=== PATIENT | male | born 1940 | race Caucasian/White ===

== ENCOUNTER 2022-12-13 13:11 | Outpatient (OUT) | payer MEDICARE, OTHER, SELFPAY ==
[2022-12-13 14:00] LABS: Basophils Percent Auto 0.4 % (0.2-2.0); Eosinophils Absolute Auto 0.1 10^3/uL (0.0-0.7); Eosinophils Percent Auto 2.1 % (0.9-7.0); Hematocrit 47.8 % (42.0-54.0); Hemoglobin 15.8 g/dL (14.0-18.0); Immature Granulocytes Abs Auto 0.03 10^3/uL (0.00-0.03); Immature Granulocytes Pct Auto 0.5 % (0.0-0.5); Lymphocytes Absolute Auto 1.2 10^3/uL (1.2-3.8); Lymphocytes Percent Auto 20.5 % (20.5-60.0); Mean Corpuscular HGB Conc 33.1 g/dL (29.9-35.2); Mean Corpuscular Hemoglobin 32.4 pg (25.9-34.0); Mean Corpuscular Volume 98.2 fL (80.0-94.0); Mean Platelet Volume 10.7 fL (9.5-13.5); Monocytes Absolute Auto 0.4 10^3/uL (0.3-0.8); Monocytes Percent Auto 7.4 % (1.7-12.0); Neutrophils Absolute Auto 3.9 10^3/uL (1.4-6.5); Neutrophils Percent Auto 69.1 % (43.0-75.0); Platelet Count 135 10^3/uL (150-450); Red Blood Count 4.87 10^6/uL (4.70-6.10); Red Cell Distribution Width 12.6 % (11.0-15.0); White Blood Count 5.7 10^3/uL (4.0-11.0)
[2022-12-13 14:27] LABS: Anion Gap 7.2; Calcium 8.4 mg/dL (8.5-10.1); Carbon Dioxide 29.6 mmol/L (21.0-32.0); Chloride 106 mmol/L (98-107); Estimated GFR (African America >60 (>=60); Estimated GFR (Non-African Ame >60 (>=60); Glucose 115 mg/dL (74-106); Potassium 3.8 mmol/L (3.5-5.1); Sodium 139 mmol/L (136-145); Thyroid Stimulating Hormone 2.454 uIU/mL (0.358-3.740)
== END 2022-12-13 13:12 | disposition home or self-care (01) ==
PROVIDERS: PCP Internal Medicine; Visit Provider Internal Medicine
DX: I10 Essential (primary) hypertension (principal); R25.1 Tremor, unspecified; Z79.899 Other long term (current) drug therapy
CPT/HCPCS: 36415; 80048; 84443; 85025

== ENCOUNTER 2023-12-16 11:17 | Outpatient (OUT) | payer MEDICARE, OTHER, SELFPAY ==
[2023-12-16 12:28] LABS: Basophils Percent Auto 0.6 % (0.2-2.0); Eosinophils Absolute Auto 0.2 10^3/uL (0.0-0.7); Eosinophils Percent Auto 2.6 % (0.9-7.0); Hematocrit 49.2 % (42.0-54.0); Hemoglobin 16.3 g/dL (14.0-18.0); Immature Granulocytes Abs Auto 0.06 10^3/uL (0.00-0.03); Immature Granulocytes Pct Auto 0.9 % (0.0-0.5); Lymphocytes Absolute Auto 1.7 10^3/uL (1.2-3.8); Lymphocytes Percent Auto 24.6 % (20.5-60.0); Mean Corpuscular HGB Conc 33.1 g/dL (29.9-35.2); Mean Corpuscular Hemoglobin 32.3 pg (25.9-34.0); Mean Corpuscular Volume 97.4 fL (80.0-94.0); Mean Platelet Volume 11.1 fL (9.5-13.5); Monocytes Absolute Auto 0.6 10^3/uL (0.3-0.8); Monocytes Percent Auto 8.9 % (1.7-12.0); Neutrophils Absolute Auto 4.3 10^3/uL (1.4-6.5); Neutrophils Percent Auto 62.4 % (43.0-75.0); Platelet Count 132 10^3/uL (150-450); Red Blood Count 5.05 10^6/uL (4.70-6.10); Red Cell Distribution Width 12.5 % (11.0-15.0)
[2023-12-16 12:34] LABS: Alanine Aminotransferase 15 U/L (16-63); Albumin Globulin Ratio 1.2; Albumin Level 3.8 g/dL (3.4-5.0); Alkaline Phosphatase 84 U/L (46-116); Anion Gap 11.8; Aspartate Amino Transferase 20 U/L (15-37); BUN Creatinine Ratio 14.3; Calcium 8.9 mg/dL (8.5-10.1); Carbon Dioxide 28.3 mmol/L (21.0-32.0); Chloride 102 mmol/L (98-107); Estimated GFR (African America >60 (>=60 mL/min/1.73m^2); Estimated GFR (Non-African Ame >60 (>=60 mL/min/1.73m^2); Globulin 3.3 g/dL; Glucose 89 mg/dL (74-106); Potassium 4.1 mmol/L (3.5-5.1); Sodium 138 mmol/L (136-145); Thyroid Stimulating Hormone 3.248 uIU/mL (0.358-3.740); Total Protein 7.1 g/dL (6.4-8.2)
== END 2023-12-16 11:18 | disposition home or self-care (01) ==
LOC: LAB 11:17
PROVIDERS: PCP Internal Medicine; Visit Provider Internal Medicine
DX: R25.1 Tremor, unspecified (principal); I10 Essential (primary) hypertension; R53.83 Other fatigue
CPT/HCPCS: 36415; 80053; 84443; 85025

== ENCOUNTER 2024-12-14 14:24 | Outpatient (OUT) | payer MEDICARE, OTHER, SELFPAY ==
--- OUTSIDE RECORDS SUMMARY | 2024-12-14 14:31 | XMS_ITS | Clinical Summary ---
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 Social History Tobacco Use Types Packs/Day Years Used Date Smoking Tobacco: Never Assessed Sex and Gender Information Value Date Recorded Sex Assigned at Not on file Legal Sex Male 8:58 AM EST Gender Identity Not on file Sexual Orientation Not on file Plan of Treatment Health Maintenance Due Date Last Done Comments Anxiety Screening 1958 Depression Screening 1958 DTaP,Tdap,Td Vaccine (1 - Tdap) 09/11/1959 Diabetes Screening 1985 Pneumococcal Vaccine: 50+ (1 of 1 - PCV) 1990 Shingrix Vaccine (1 of 2) 1990 RSV Vaccine (1 - 1-dose 75+ series) 09/11/2015 Advance Directive Discussion 03/11/2024 Influenza Vaccine (#1) 2024
--- OUTSIDE RECORDS SUMMARY | 2024-12-14 14:31 | XMS_ITS | Clinical Summary ---
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) TAKE 1/2 A TABLET BY MOUTH 3 TIMES A DAY AT 11AM, 3PM, AND 7PM 45 tablet 2 5 Active Active Problems No known active problems Family History Medical History Relation Name Comments Parkinsonism Brother Relation Name Status Comments Brother Social History Tobacco Use Types Packs/Day Years Used Date Smoking Tobacco: Never Smokeless Tobacco: Never Tobacco Cessation:Counseling Given: Not Answered Alcohol Use Standard Drinks/Week Comments Not Currently 0 (1 standard drink = 0.6 oz pur e alcohol) Sex and Gender Information Value Date Recorded Sex Assigned at Not on file Legal Sex Male 11:51 PM EDT Gender Identity Not on file Sexual Orientation Not on file Last Filed Vital Signs Vital Sign Reading Time Taken Comments Blood Pressure 130/86 07/07/2024 1:59 PM EDT Pulse 87 07/07/2024 1:59 PM EDT Temperature - - Respiratory Rate - - Oxygen Saturation 99% 07/07/2024 1:59 PM EDT Inhaled Oxygen Concentration - - Weight 74.8 kg (165 lb) 07/07/2024 1:59 PM EDT Height 177.8 cm (5' 10 ) 07/07/2024 1:59 PM EDT Body Mass Index 23.68 07/07/2024 1:59 PM EDT Plan of Treatment Health Maintenance Due Date Last Done Comments Pneumococcal Vaccine: 65+ Ye ars (1 of 1 - PCV) 1990 Influenza Vaccine (#1) 2024 4, 12/08/2021, 12/09/2017, Additional history exists Insurance MEDICARE [facility] Care Teams Clinical Support Manager Relationship Specialty Start Date End Date David Servin DO PCP - General Internal Medicine 12/17/23 Theo Almazan DO [address] [place] [address] Referring Physician Neurology 07/07/24
--- OUTSIDE RECORDS SUMMARY | 2024-12-14 14:33 | XMS_ITS | CCD ---
Author Organization [facility] Care Team Providers Care 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 Name Role Phone DR DAVID XIONG Attending Unavailable GARETH, DR LE Consulting Unavailable GARETH, DR LE Primary Care Unavailable GARETH, DR LE Admitting Unavailable David Xiong Unavailable David Xiong MD Primary Care Provider David Xiong MD Primary Care Provider Gladys Keita DO Unavailable ECTOR MCKEON Attending Unavailable GLADYS KEITA Attending Unavailable DAVID XIONG Referring Unavailable JARET RECINOS Attending Unavailable Allergies Allergy Classification Reported Allergen(s) Allergy Type Date of Onset Reaction(s) Facility (4 sources) Penicillin Drug Allergy Unknown [facility] Other (8 sources) Penicillins Propensity to adverse reactions 4 Rash [facility] Medications Current Medications Medication Drug Class(es) Dates Sig (Normalized) Sig (Original) brimonidine tartrate 2 mg/ml / brinzolamide 10 mg/ml ophthalmic suspension (4 sources) Carbonic Anhydrase Inhibitor, alpha-Adrenergic Agonist take 1 drop(s) into the eye(s) three times daily Simbrinza 1-0.2 % 1 drop into affected eye Ophthalmic Three times a day Active carbidopa 25 mg / levodopa 100 mg oral tablet (8 sources) Aromatic Amino Acid Decarboxylation Inhibitor, Aromatic Amino Acid Start: 04-08-2024 carbidopa-levodopa (Sinemet) 25-100 MG tablet Indications: Parkinson's disease without dyskinesia or fluctuating manifestations (CMS/HCC) TAKE 1/2 A TABLET BY MOUTH 3 TIMES A DAY AT 11AM, 3PM, AND 7PM 45 tablet 2 04/08/2024 Active Start: 01-13-2024 carbidopa-levo dopa (Sinemet) 25-100 MG tablet Indications: Parkinson's disease without dyskinesia or fluctuating manifestations (CMS/HCC) Take 1/2 tablet p.o. t.I.d. at 11:00 a.m., 3:00 p.m. and 7:00 p.m. 45 tablet 2 01/13/2024 Active latanoprost 0.05 mg/ml ophthalmic solution (4 sources) Prostaglandin Analog take 1 drop(s) into the eye(s) once daily in the evening Latanoprost 0.005 % 1 drop into affected eye in the evening Ophthalmic Once a day Active lisinopril 5 mg oral tablet (12 sources) Angiotensin Converting Enzyme Inhibitor take 1 tablet by mouth once daily lisinopril 5 MG tablet Take 5 mg by mouth Daily Active valACYclovir 1000 mg oral tablet (4 sources) Herpesvirus Nucleoside Analog DNA Polymerase Inhibitor, Herpes Simplex Virus Nucleoside Analog DNA Polymerase Inhibitor, Herpes Zoster Virus Nucleoside Analog DNA Polymerase Inhibitor Start: 07-10-19 take 1 tablet by mouth three times daily valACYclovir HCl 1 GM 1 tablet Orally three times daily for 7 days July, Active Problems Active Problems Problem Classification Problem Date Documented Date Episodic/Chronic Essential hypertension (10 sources) Essential (primary) hypertension; Translations: [Essential hypertension] Onset: 12-11-2021 Chronic Glaucoma (4 sources) Glaucoma; Translations: [Unspecified glaucoma] Chronic Hyperplasia of prostate (4 sources) Lower urinary tract symptoms due to benign prostatic hypertrophy; Translations: [Benign prostatic hyperplasia with lower urinary tract symptoms] Chronic Other aftercare (2 sources) Other chcf (current) drug therapy; Translations: [OTH INTERMEDIATE CURRENT DRUG THERAPY] Onset: 12-13-2021 Episodic Other aftercare (4 sources) H/O: high risk medication; Translations: [Other manager intermediate (current) drug therapy] Episodic Other diseases of veins and lymphatics (4 sources) Peripheral venous insufficiency; Translations: [Venous insufficiency (chronic) (peripheral)] Episodic Other nervous system disorders (1 source) Tremor, unspecified Episodic Other screening for suspected conditions (not mental disorders or infectious disease) (4 sources) Raised prostate specific antigen; Translations: [Elevated prostate specific antigen [PSA]] Episodic Residual codes; unclassified (6 sources) Family history of Parkinson's disease; Translations: [Family history of epilepsy and other diseases of the nervous system] 01-13-2024 Episodic Unclassified (6 sources) Parkinson's disease; Translations: [Parkinson's disease without dyskinesia or fluctuating manifestations (CMS/HCC)] 01-13-2024 Chronic Viral infection (1 source) Zoster with other complications Episodic Past or Other Problems Problem Classification Problem Date Documented Da te Episodic/Chronic Parkinson`s disease (1 source) Parkinson`s disease Results Test Name Value Interpretation Reference Range Facil ity CBC AUTO DIFFon 12-11-2021 BASO # 0.0 103/ul Normal 0.0-0.1 [facility] Comment on above: Performed By: #### C BC #### [facility] [address] [address] [address] Kelsey Yi Basophils/100 WBC (Bld) 0.1 % Critically low 0.2-2.0 [facility] Comment on above: Performed By: #### C BC #### [facility] [address] [place] [address] Dr. Kelsey Yi EO # 0.1 103/ul Normal 0.0-0.7 [facility] Comment on above: Performed By: #### C BC #### [facility] [address] [address] [address] Kelsey Yi Eosinophils/100 WBC (Bld) 0.8 % Critically low 0.9-7.0 [facility] Comment on above: Performed By: #### C BC #### [facility] [address] [place] [address] Dr. Kelsey Yi Erythrocyte distribution width (RBC) [Ratio] 12.5 % Normal 11.0-15.0 [facility] Comment on above: Performed By: #### C BC #### [facility] [address] [place] [address] Dr. Kelsey Yi Hematocrit (Bld) [Volume fraction] 50.5 % Normal 42.0-54.0 [facility] Comment on above: Performed By: #### C BC #### [facility] [address] [place] [address] Dr. Kelsey Yi Hemoglobin (Bld) [Mass/Vol] 16.4 g/dL Normal 14.0-18.0 [facility] Comment on above: Performed By: #### C BC #### [facility] [address] [place] [address] Dr. Kelsey Yi IG # 0.03 10e3/ul Normal 0.00-0.03 [facility] Comment on above: Performed By: #### C BC #### [facility] [address] [place] [address] Dr. Kelsey Yi IG % 0.4 % Normal 0.0-0.5 [facility] Comment on above: Performed By: #### C BC #### [facility] [address] [place] [address] Dr. Kelsey Yi LYMPH # 1.3 103/ul Normal 1.2-3.8 [facility] Comment on above: Performed By: #### C BC #### [facility] [address] [place] [address] Dr. Kelsey Yi Lymphocytes/100 WBC (Bld) 18.6 % Critically low 20.5-60.0 [facility] Comment on above: Performed By: #### C BC #### [facility] [address] [place] [address] Dr. Kelsey Yi MANUAL DIFF REQ NO Normal [facility] [place] Comment on above: Performed By: #### C BC #### [facility] [address] [place] [address] Dr. Kelsey Yi MCH (RBC) [Entitic mass] 31.5 pg Normal 25.9-34.0 [facility] Comment on above: Performed By: #### C BC #### [facility] [address] [place] [address] Dr. Kelsey Yi MCHC (RBC) [Mass/Vol] 32.5 g/dL Normal 29.9-35.2 [facility] Comment on above: Performed By: #### C BC #### [facility] [address] [place] [address] Dr. Kelsey Yi MCV (RBC) [Entitic vol] 97.1 fL Critically high 80.0-94.0 [facility] Comment on above: Performed By: #### C BC #### [facility] [address] [address] [address] Kelsey Yi MONO # 0.7 103/ul Normal 0.3-0.8 [facility] Comment on above: Performed By: #### C BC #### [facility] [address] [address] [address] Kelsey Yi Monocytes/100 WBC (Bld) 9.2 % Normal 1.7-12.0 [facility] Comment on above: Performed By: #### C BC #### [facility] [address] [place] [address] Dr. Kelsey Yi NEUT # 5.0 103/ul Normal 1.4-6.5 [facility] Comment on above: Performed By: #### C BC #### [facility] [address] [place] [address] Dr. Kelsey Yi Neutrophils/100 WBC (Bld) 70.9 % Normal 43.0-75.0 [facility] Comment on above: Performed By: #### C BC #### [facility] [address] [place] [address] Dr. Kelsey Yi Platelet mean volume (Bld) [Entitic vol] 10.6 fL Normal 9.5-13.5 [facility] Comment on above: Performed By: #### C BC #### [facility] [address] [place] [address] Dr. Kelsey Yi PLT 141 103/ul Critically low 150-450 [facility] Comment on above: Performed By: #### C BC #### [facility] [address] [place] [address] Dr. Kelsey Yi RBC 5.20 106/ul Normal 4.70-6.10 [facility] Comment on above: Performed By: #### C BC #### [facility] [address] [place] [address] Dr. Kelsey Yi WBC 7.1 103/ul Normal 4.0-11.0 [facility] Comment on above: Performed By: #### C BC #### [facility] [address] [place] [address] Dr. Kelsey Yi PROF 14(COMP METB)on 022 Albumin [Mass/Vol] 3.9 g/dL Normal 3.4-5.0 [facility] Comment on above: Performed By: #### C MP #### [facility] [address] [place] [address] Dr. Kelsey Yi Albumin/Globulin [Mass ratio] 1.1 {ratio} Normal [facility] Comment on above: Performed By: #### C MP #### [facility] [address] [place] [address] Dr. Kelsey Yi ALP [Catalytic activity/Vol] 92 U/L Normal 46-116 [facility] Comment on above: Performed By: #### C MP #### [facility] [address] [place] [address] Dr. Kelsey Yi ALT [Catalytic activity/Vol] 13 U/L Critically low 16-63 [facility] Comment on above: Performed By: #### C MP #### [facility] [address] [place] [address] Dr. Kelsey Yi Anion gap [Moles/Vol] 7.9 mmol/L Normal [facility] Comment on above: Performed By: #### C MP #### [facility] [address] [place] [address] Dr. Kelsey Yi AST [Catalytic activity/Vol] 13 U/L Critically low 15-37 [facility] Comment on above: Performed By: #### C MP #### [facility] [address] [place] [address] Dr. Kelsey Yi Bilirubin [Mass/Vol] 0.7 mg/dL Normal 0.2-1.0 [facility] Comment on above: Performed By: #### C MP #### [facility] [address] [place] [address] Dr. Kelsey Yi Calcium [Mass/Vol] 9.0 mg/dL Normal 8.5-10.1 [facility] Comment on above: Performed By: #### C MP #### [facility] [address] [place] [address] Dr. Kelsey Yi Chloride [Moles/Vol] 104 mmol/L Normal 98-107 [facility] Comment on above: Performed By: #### C MP #### [facility] [address] [address] [address] Kelsey Yi CO2 [Moles/Vol] 31.2 mmol/L Normal 21.0-32.0 [facility] Comment on above: Performed By: #### C MP #### [facility] [address] [address] [address] Kelsey Yi Creatinine [Mass/Vol] 1.01 mg/dL Normal 0.70-1.30 [facility] Comment on above: Performed By: #### C MP #### [facility] [address] [place] [address] Dr. Kelsey Yi EGFR-AF ERITREAN >60 Normal >=60 [facility] Comment on above: Performed By: #### C MP #### [facility] [address] [place] [address] Dr. Kelsey Yi EGFR-NON AF ERITREAN >60 Normal >=60 [facility] Comment on above: Performed By: #### C MP #### [facility] [address] [address] [address] Kelsey Yi Globulin (S) [Mass/Vol] 3.4 g/dL Normal [facility] Comment on above: Performed By: #### C MP #### [facility] [address] [place] [address] Dr. Kelsey Yi Glucose [Mass/Vol] 82 mg/dL Normal 74-106 [facility] Comment on above: Performed By: #### C MP #### [facility] [address] [place] [address] Dr. Kelsey Yi Potassium [Moles/Vol] 4.1 mmol/L Normal 3.5-5.1 [facility] Comment on above: Performed By: #### C MP #### [facility] [address] [place] [address] Dr. Kelsey Yi Protein [Mass/Vol] 7.3 g/dL Normal 6.4-8.2 [facility] Comment on above: Performed By: #### C MP #### [facility] [address] [place], [place] [address] Dr. Kelsey Yi Sodium [Moles/Vol] 139 mmol/L Normal 136-145 [facility] Comment on above: Performed By: #### C MP #### [facility] [address] [place], [place] [address] Dr. Kelsey Yi Urea nitrogen [Mass/Vol] 16.0 mg/dL Normal 7.0-18.0 [facility] Comment on above: Performed By: #### C MP #### [facility] [address] [address] [address] Kelsey Yi Urea nitrogen/Creatinine [Mass ratio] 15.8 mg/mg Normal [facility] Comment on above: Performed By: #### C MP #### [facility] [address] [address] [address] Kelsey Yi Vital Signs Date Time Vital Sign Value Performing Clinician Faci lity 07-07-2024 13:59-0400 Body height 177.8 cm Ector Mckeon OFFICE ASSISTANT RECEPTIONIST Work Phone: [facility] 07-07-2024 13:59-0400 Body mass index (BMI) [Ratio] 23.68 kg/m2 Ector Mckeon OFFICE ASSISTANT RECEPTIONIST Work Phone: [facility] 07-07-2024 13:59-0400 Body weight 74.84 kg Ector Trayloroll OFFICE ASSISTANT RECEPTIONIST Work Phone: [facility] 07-07-2024 13:59-0400 Diastolic blood pressure 86 mm[Hg] Ector Mckeon OFFICE ASSISTANT RECEPTIONIST Work Phone: [facility] 07-07-2024 13:59-0400 Heart rate 87 /min Ector Mckeon OFFICE ASSISTANT RECEPTIONIST Work Phone: [facility] 07-07-2024 13:59-0400 SaO2% (BldA) [Mass fraction] 99 % Ector Mckeon OFFICE ASSISTANT RECEPTIONIST Work Phone: [facility] 07-07-2024 13:59-0400 Systolic blood pressure 130 mm[Hg] Ector Mckeon OFFICE ASSISTANT RECEPTIONIST Work Phone: [facility] 02-12-2024 12:58-0500 Body height 177.8 cm Jaret Recinos OFFICE ASSISTANT RECEPTIONIST Work Phone: [facility] 02-12-2024 12:58-0500 Body mass index (BMI) [Ratio] 23.39 kg/m2 Jaret Recinos OFFICE ASSISTANT RECEPTIONIST Work Phone: [facility] 02-12-2024 12:58-0500 Body weight 73.94 kg Jaret Recinos OFFICE ASSISTANT RECEPTIONIST Work Phone: [facility] 02-12-2024 12:58-0500 Diastolic blood pressure 68 mm[Hg] Jaret Recinos OFFICE ASSISTANT RECEPTIONIST Work Phone: [facility] 02-12-2024 12:58-0500 Heart rate 90 /min Jaret Recinos OFFICE ASSISTANT RECEPTIONIST Work Phone: [facility] 02-12-2024 12:58-0500 SaO2% (BldA) [Mass fraction] 97 % Jaret Recinos OFFICE ASSISTANT RECEPTIONIST Work Phone: [facility] 02-12-2024 12:58-0500 Systolic blood pressure 132 mm[Hg] Jaret Recinos OFFICE ASSISTANT RECEPTIONIST Work Phone: [facility] 01-13-2024 14:52-0500 Body weight 74.3 kg Christopher Tha DO Work Phone: [facility] 01-13-2024 14:52-0500 Diastolic blood pressure 78 mm[Hg] Christopher Tha DO Work Phone: [facility] 01-13-2024 14:52-0500 Heart rate 73 /min Christopher Tha DO Work Phone: [facility] 01-13-2024 14:52-0500 SaO2% (BldA) [Mass fraction] 94 % Christopher Tha DO Work Phone: [facility] 01-13-2024 14:52-0500 Systolic blood pressure 142 mm[Hg] Christopher Tha DO Work Phone: [facility] 12-10-2022 13:30-0400 Body height 177.8 cm David Gareth Other [facility] Other 12-10-2022 13:30-0400 Body mass index (BMI) [Ratio] 24.71 kg/m2 David Ball Other [facility] Other 12-10-2022 13:30-0400 Body weight 78.11 kg David Ball Other [facility] Other 12-10-2022 13:30-0400 Diastolic blood pressure 73 mm[Hg] David Ball Other [facility] Other 12-10-2022 13:30-0400 Respiratory rate 12 /min David Ball Other [facility] Other 12-10-2022 13:30-0400 Systolic blood pressure 139 mm[Hg] David Ball Other [facility] Other 07-09-2022 15:45-0400 Body height 177.8 cm David Ball Other [facility] Other 07-09-2022 15:45-0400 Body mass index (BMI) [Ratio] 24.85 kg/m2 David Ball Other [facility] Other 07-09-2022 15:45-0400 Body weight 78.56 kg David Ball Other [facility] Other 07-09-2022 15:45-0400 Diastolic blood pressure 77 mm[Hg] David Ball Other [facility] Other 07-09-2022 15:45-0400 SaO2% (BldA) [Mass fraction] 98 % David Ball Other [facility] Other 07-09-2022 15:45-0400 Systolic blood pressure 145 mm[Hg] David Xiong Other [place] [employer] [facility] Other Encounters Encounter Date Encounter Type Care Provider Facility Start: 07-07-2024 End: 07-07-2024 Bamboo flowsheet Ector Mckeon OFFICE ASSISTANT RECEPTIONIST Work Phone: [facility] Start: 07-07-2024 End: 07-07-2024 Bamboo flowsheet Ector Mckeon OFFICE ASSISTANT RECEPTIONIST Work Phone: [facility] Start: 07-07-2024 End: 07-07-2024 Office outpatient visit 15 minutes Ector Mckeon OFFICE ASSISTANT RECEPTIONIST Work Phone: [facility] [place] Comment on above: Parkinson's disease without dyskinesia or fluctuating manifestations (CMS/HCC) (Primary Dx); Family history of Parkinson's disease Start: 07-07-2024 End: 07-07-2024 ambulatory ECTOR MCKEON Not Available Start: 02-12-2024 End: 02-12-2024 Bamboo flowsheet Jaret Recinos OFFICE ASSISTANT RECEPTIONIST Work Phone: [facility] [address] [facility] Start: 02-12-2024 End: 02-12-2024 Bamboo flowsheet Jaret Recinos OFFICE ASSISTANT RECEPTIONIST Work Phone: [facility] [address] Start: 02-12-2024 End: 02-12-2024 Office outpatient visit 15 minutes Jaret Recinos OFFICE ASSISTANT RECEPTIONIST Work Phone: [facility] [address] Comment on above: Parkinson's disease without dyskinesia or fluctuating manifestations (CMS/HCC) (Primary Dx); Family history of Parkinson's disease Start: 02-12-2024 End: 02-12-2024 ambulatory JARET RECINOS Not Available Start: 01-13-2024 End: 01-13-2024 Office outpatient new 45 minutes Gladys Keita DO Work Phone: [facility] [address] Comment on above: Parkinson's disease without dyskinesia or fluctuating manifestations (CMS/HCC) (Primary Dx); Family history of Parkinson's disease Start: 01-13-2024 End: 01-13-2024 ambulatory GLADYS KEITA Not Available Start: 01-13-2024 End: 01-13-2024 Bamboo flowsheet Gladys Keita DO Work Phone: [facility] [address] [facility] Start: 01-13-2024 End: 01-13-2024 Bamboo flowsheet Gladys Keita DO Work Phone: [facility] [address] Start: 12-14-2022 End: 12-14-2022 ambulatory David Xiong Other [facility] Other Start: 12-14-2022 Telephone encounter David Xiong [facility] Start: 12-10-2022 End: 12-10-2022 ambulatory David Xiong Other [facility] Other Start: 12-10-2022 Patient encounter procedure David Xiong [facility] Start: 07-09-2022 End: 07-09-2022 ambulatory David Xiong Other [facility] Other Start: 07-09-2022 Office outpatient vi sit 15 minutes David Xiong [facility] Start: 07-09-2022 Telephone encounter [facility] Start: 12-11-2021 End: 12-12-[address] DAVID XIONG Facility: Plan of Treatment Date Care Activity Detail Author Start: 10-27-2024 End: 10-27-2024 Patient encounter procedure 10/27/2024 1:00 PM EDT Office Visit [facility] [address] [place] [id number] Ector Mckeon NP [address] [place] [address] [facility] [place] Start: 07-07-2024 End: 07-07-2024 Patient encounter procedure 07/07/2024 2:00 PM EDT Office Visit [facility] [place] [address] [place] [address] Ector Mckeon NP [address] [place] [address] Arrived [facility] Comment on above: Arrived Start: 05-13-2024 End: 05-13-2024 Patient encounter procedure 05/13/2024 1:00 PM EST Office Visit [facility] [address] [place] [address] Jaret Recinos NP [address] [place], [place] [id number] [facility] Start: 02-12-2024 End: 02-12-2024 Patient encounter procedure [facility] Comment on above: Arrived Start: 01-13-2024 End: 01-13-2024 Patient encounter procedure 01/13/2024 3:00 PM EST Office Visit [facility] [address] [facility] [place] [id number] Gladys Keita DO [address] [place] [address] Arrived [facility] [address] [facility] Comment on above: Arrived Start: 2005 Pneumococcal Vaccine : 65+ Years (1 of 1 - PCV) Pneumococcal Vaccine: 65+ Years (1 of 1 - PCV) [facility] Start: 1990 Pneumococcal Vaccine : 65+ Years (1 of 1 - PCV) Pneumococcal Vaccine: 65+ Years (1 of 1 - PCV) [facility] Immunizations Immunization Date Immunization Notes Care Provider Fa [facility] 12-10-2022 influenza, high dose seasonal, preservative-free David Xiong Other [facility] Other 12-08-2021 influenza virus vaccine, split virus (incl. purified surface antigen) David Xiong Other [facility] Other 12-07-2020 influenza virus vaccine, split virus (incl. purified surface antigen) David Xiong Other [facility] Other 12-08-2019 influenza virus vaccine, split virus (incl. purified surface antigen) David Xiong Other [facility] Other 12-04-2018 influenza virus vaccine, split virus (incl. purified surface antigen) David Xiong Other [facility] Other 12-09-2017 influenza virus vaccine, split virus (incl. purified surface antigen) David Xiong Other [facility] Other 12-11-2016 influenza virus vaccine, split virus (incl. purified surface antigen) David Xiong Other [facility] Other 12-13-2015 influenza virus vaccine, split virus (incl. purified surface antigen) David Xiong Other [facility] Other 06-28-2015 pneumococcal conjuga te vaccine, 13 valent David Xiong Other [facility] Other 12-30-2013 tetanus and diphther ia toxoids, adsorbed, preservative free, for adult use (5 Lf of tetanus toxoid and 2 Lf of diphtheria toxoid) David Xiong Other [facility] Other 12-31-2012 tetanus and diphther ia toxoids, adsorbed, preservative free, for adult use (5 Lf of tetanus toxoid and 2 Lf of diphtheria toxoid) David Xiong Other [facility] Other 11-10-2007 pneumococcal polysaccharide vaccine, 23 valent David Xiong Other [facility] Other Payers Date Payer Category Payer Private Health Insurance [facility] [id number] 2005 Medicare MEDICARE [id number] 1959 Medicare [id number] 1959 Unknown [id number] 1940 Unknown [id number] 1940 Unknown [id number] 1940 Unknown [id number] 1940 Unknown [id number] Social History Date Type Detail Facility Start: 07-07-2024 Sex Assigned At N [facility] [employer] Other Tobacco smoking status TXIS Tobacco smoking consumption unknown [facility] Start: 1940 Sex assigned at Not on file N [facility] Start: 07-07-2024 Tobacco smoking status TXIS Never smoked tobacco [facility] Start: 07-07-2024 Tobacco use and exposure Smokeless tobacco non-user [facility] Start: 07-07-2024 Alcoholic beverage intake Ex-drinker (finding) [facility] Start: 07-07-2024 History of Social function [facility] History of Present illness Narrative 01-13-2024 Gladys Keita DO - 01/13/2024 3:00 PM EST Note Date & Type Note Facility 01-13-2024 History of Presen t illness Narrative Images from the original note were not included. Chief complaint: Tremor Subjective Yomi Moore, 83 y.o., male Yomi is here for a neurologic consult at the request of Dr. Xiong for resting tremor. Patient states this is in his right hand. This is intermittent. He states this has been happening for about one year. He states he only notices this when he is walking although I did notice this when taking his vitals. He states he is able to stop this when he feels it happening. He does report when he is carrying a bag he is unable to stop the tremor. He denies a weakening convalescent sitter or dropping items. He states at times when he is laying down his torso can feel like it has a tremor. He is unsure if this is his heartbeat or not. He has not tried any medications or had any testing. Review of Systems Constitutional: Negative for appetite change, fatigue and fever. Respiratory: Negative for cough, shortness of breath and wheezing. Cardiovascular: Negative for chest pain, palpitations and leg swelling. Gastrointestinal: Negative for abdominal pain, constipation, diarrhea and nausea. Musculoskeletal: Negative for arthralgias, gait problem and myalgias. Neurological: Positive for tremors. Negative for dizziness, numbness and headaches. No past medical history on file. No past surgical history on file. No family history on file. Social History Tobacco Use Smoking status: Not on file Smokeless tobacco: Not on file Substance Use Topics Alcohol use: Not on file Allergies: Penicillins Vitals: 01/13/24 1452 BP: 142/78 Pulse: 73 SpO2: 94% There is no height or weight on file to calculate BMI. weight: 163 lb 12.8 oz Neurologic exam: Mental status: Awake, alert to person, place and time. Recent and remote memory are intact. Language is fluent without aphasia. Attention and concentration are normal. Fund of knowledge is appropriate for level of education. Cranial nerves: CN II: Visual acuity is normal. Visual reid full to confrontation. CN III, IV, : pupils equal round and reactive to light. Extraocular movements intact. No ptosis present. CN V: Facial sensation is normal. CN VII: Full and symmetric facial movement. Masked facies CN VIII: Hearing is normal to finger rub bilaterally: CN IX and X: Palate elevates symmetrically. CN XI: Shoulder shrug is normal bilaterally. CN XII: Tongue is midline without atrophy or fasciculation. Motor: RUE Strength deltoid, , biceps , triceps , wrist extensors , wrist flexor , convalescent sitter strength 5/5. LUE Strength deltoid , biceps , triceps , wrist extensors , wrist flexor , convalescent sitter strength 5/5. RLE Strength illopsoas, quadriceps, tibialis anterior, and gastrocnemius strength 5/5. LLE Strength illopsoas, quadriceps, tibialis anterior, and gastrocnemius strength 5/5. Rest tremor in the right greater than left upper extremity. Bradykinesia bilaterally. Rigidity right greater than left. Bulk is normal. Sensory: Sensation is intact to light touch throughout Four extremities. Reflexes: RUE biceps reflex 1+ brachioradialis reflex 1+ . LUE biceps reflex 1+ brachioradialis reflex 1 does+ . RLE knee reflex 0 . LLE knee reflex 0. Garcia's sign negative. Coordination: [id number] testing and rapid alternating movements are normal Gait: Decreased arm swing while walking Review and summary of old records: TSH 12/16/23: normal Assessment/Plan Diagnoses and all orders for this visit: Parkinson's disease without dyskinesia or fluctuating manifestations (CMS/HCC) It is my impression that the patient has Parkinson's disease. He has right upper extremity tremor, bradykinesia, hypophonia and decreased arm swing along with some rigidity right greater than left. He also has a family history of Parkinson's in his brother who 2 years ago. Plan: Start Sinemet immediate release 25/100.5 tablet p.o. t.I.d. at 11:00 a.m., 3:00 p.m. and 7:00 p.m.. The patient wakes up late and stays up very late watching TV so we will use this during his waking hours. We may need to increase the dose at follow up pending response. Pt has been fully educated on their diagnosis, treatment options, follow up plan, and return instructions documented in this encounter [facility] Evaluation note 12-10-2022 Note Date & Type Note Facility 12-10-2022 Evaluation note Encounter Date Diagnosis Assessment Notes Dec, Medicare annual wellness visit, subsequent (ICD-10 - Z00.00) Personalized health advice was given to the beneficiary including a written plan for screenings discussed and provided. Advanced care planning reviewed and/or information given as requested. Additional counseling was provided here today in regards to, [ ]. The above visit was performed by [ ], under direct supervision of [ ]. Document reviewed and amended by provider signed below. Dec, Primary hypertension (ICD-10 - I10) This patient is instructed to consume a healthy, low-fat, low-salt diet. They are also encouraged to continue exercise to achieve/maintai n a normal BMI. Dec, High risk medication use (ICD-10 - Z79.899) Check labs: CBC Dec, Parkinson's disease without dyskinesia or fluctuating manifestations (ICD-10 - G20.A1) Only manifestation appears to be RUE resting tremor. He manifest no symptoms of bradykinesia His gait appears normal w/ upright posture and arm swings. Dec, Tremor (ICD-10 - R25.1) Most likely Parkinson's resting tremor. Treatment options discussed as well as referral to Neurology His brother was dx w/ Parkinson's disease [facility] Other Evaluation note 07-09-2022 Note Date & Type Note Facility 07-09-2022 Evaluation note Encounter Date Diagnosis Assessment Notes July, Herpes zoster with complication (ICD-10 - B02.8) Instructed to keep clean and dry. Tylenol for pain, call if intolerable. Education on etiology and contagiousness July, Primary hypertension (ICD-10 - I10) This patient is instructed to consume a healthy, low-fat, low-salt diet. They are also encouraged to continue exercise to achieve/maintain a normal BMI. [facility] Other Evaluation note Note Date & Type Note Facility Evaluation note No Information [employer] Other Evaluation note Note Date & Type Note Facility Evaluation note Diagnosis Parkinson's disease without dyskinesia or fluctuating manifestations ([facility])- Primary Family history of Parkinson's disease Family history of other neurological diseases documented in this encounter [facility] Evaluation note Note Date & Type Note Facility Evaluation note Diagnosis Parkinson's disease without dyskinesia or fluctuating manifestations (CMS/HCC)- Primary Family history of Parkinson's disease Family history of other neurological diseases documented in this encounter [facility] History general Narrative - Reported Note Date & Type Note Facility History general Narrative - Reported Type Medical History Glaucoma of both eye s, unspecified glaucoma Medical History Benign prostatic hyp erplasia with lower urinary tract symptoms Medical History Chronic venous insuf ficiency of lower extremity Medical History High risk medication use Medical History Primary hypertension Medical History Elevated prostate sp ecific antigen (PSA) Surgical History BCC R FOREHEAD 2003 Hospitalization History SEE SURGICAL HX [facility] Other Reason for visit Narrative Consultation (Routine) - Closed Note Date & Type Note Facility Reason for visit Narrative Specialty Diagnoses / Procedures Referred By Ori t Referred To Contact Neurology Diagnoses Tremor, unspecified Procedures HI OFFICE/OUTPATIENT NEW LOW MDM 30 MINUTES David Xiong MD [address] [place] [address] Phone: tel: fax: Gladys Keita, DO [address] [place] [address] Phone: tel: fax: Referral ID Status Reason Start Date Expiration Date V isits Requested Visits Authorized [id number] Closed Consult and Treat 12/16/2023 06/13/2024 1 1 [facility] Summary Purpose Family History No Family History Records FoundNo Family History Records Found Advance Directives No Advanced Directives Records FoundNo Advanced Directives Records Found Additional Source Comments (unrecognized sect ion and content) No Status Records FoundNo Status Records Found INFORMATION SOURCE (unrecogn ized section and content) DATE CREATED AUTHOR 12/14/2021 [facility] DATE CREATED AUTHOR AUTHOR'S ORGANIZ ATION 07/08/2024 [facility] EPIC REASON FOR VISIT (unrecogniz ed section and content) Reason Comments Tremors Reason Comments Parkinson's Disease Care Teams (unrecognized sec tion and content) 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 Relationship Specialty Start Date End Date David Xiong MD [address] [place] [address] PCP - General Internal Medicine 12/17/23 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 Relationship Specialty Start Date End Date David Xiong MD [address] [place] [facility] [id number] PCP - General Internal Medicine 12/17/23 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 Relationship Specialty Start Date End Date David Xiong MD [address] [place] [facility] [address] PCP - General Internal Medicine 12/17/23 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 Relationship Specialty Start Date End Date David Xiong MD [address] [facility] [address] PCP - General Internal Medicine 12/17/23 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 This clinical summary was aggregated from multiple sources. Caution should be exercised in using it in the provision of clinical care. This summary normalizes information from multiple sources, and as a consequence, information in this document may materially change the coding, format and clinical context of patient data. In addition, data may be omitted in some cases. CLINICAL DECISIONS SHOULD BE BASED ON THE PRIMARY CLINICAL RECORDS. [employer] [facility]. provides no warranty or guarantee of the accuracy or completeness of information in this document.
--- NOTE | 2024-12-14 14:43 | XR_ITS ---
The [address] [address] Patient Name: ROXANE REYNAGA MRN: [id number] date: 1940 Sex: M Assigned Patient Location: LAB Current Patient Location: LAB Accession/Order Number: [id number] Exam Date: 12/14/2024 14:58 Report Date: 12/14/2024 20:45 At the request of: REY XIONG DO Procedure: XR hip LT 2V w/ pelvis XR hip LT 2V w/ pelvis 12/14/2024 3:04 PM SIGNS AND SYMPTOMS: ^Left Hip Pain PROTOCOL: 3 views of the pelvis and left hip COMPARISON: None FINDINGS: There is mild narrowing of the joint spaces of the hips. No fracture or dislocation. Degenerative changes are noted in the sacroiliac joints left greater than right. Degenerative changes are noted in the lumbar spine. XR/XR hip LT 2V w/ pelvis IMPRESSION: Degenerative changes are noted in the hips bilaterally. Degenerative changes are noted in the sacroiliac joints left greater than right. Degenerative changes are noted in the lumbar spine. Impression dictated by: Gary Clancy M.D. 12/14/2024 8:45 PM Dictation Location: [place] [address] Electronically authenticated by: [id number] Y Date: 12/14/2024 20:45
[2024-12-14 14:50] LABS: Hematocrit 49.0 % (42.0-54.0); Hemoglobin 16.0 g/dL (14.0-18.0); Immature Granulocytes Abs Auto 0.02 10^3/uL (0.00-0.03); Immature Granulocytes Pct Auto 0.3 % (0.0-0.5); Lymphocytes Absolute Auto 1.1 10^3/uL (1.2-3.8); Mean Corpuscular HGB Conc 32.7 g/dL (29.9-35.2); Mean Corpuscular Hemoglobin 31.6 pg (25.9-34.0); Mean Corpuscular Volume 96.6 fL (80.0-94.0); Platelet Count 155 10^3/uL (150-450); Red Blood Count 5.07 10^6/uL (4.70-6.10); White Blood Count 6.9 10^3/uL (4.0-11.0)
[2024-12-14 15:24] LABS: Alanine Aminotransferase 9 U/L (16-63); Albumin Globulin Ratio 1.1; Albumin Level 3.9 g/dL (3.4-5.0); Alkaline Phosphatase 94 U/L (46-116); Anion Gap 10.5; Aspartate Amino Transferase 16 U/L (15-37); Blood Urea Nitrogen 17.0 mg/dL (7.0-18.0); Calcium 9.0 mg/dL (8.5-10.1); Carbon Dioxide 30.6 mmol/L (21.0-32.0); Chloride 104 mmol/L (98-107); Estimated GFR (African America >60 (>=60 mL/min/1.73m^2); Estimated GFR (Non-African Ame >60 (>=60 mL/min/1.73m^2); Globulin 3.6 g/dL; Glucose 92 mg/dL (74-106); Potassium 4.1 mmol/L (3.5-5.1); Sodium 141 mmol/L (136-145); Total Protein 7.5 g/dL (6.4-8.2)
== END 2024-12-14 14:25 | disposition home or self-care (01) ==
PROVIDERS: PCP Internal Medicine; Visit Provider Internal Medicine
DX: M25.552 Pain in left hip (principal); G20.A1 Parkinson's disease without dyskinesia, without mention of fluctuations; M16.0 Bilateral primary osteoarthritis of hip; M46.1 Sacroiliitis, not elsewhere classified; M51.369 Other intervertebral disc degeneration, lumbar region without mention of lumbar back pain or lower extremity pain
CPT/HCPCS: 36415; 73502; 80053; 85025